=== PATIENT | female | born 1950 | race Caucasian/White ===

== ENCOUNTER 2017-01-16 09:26 | Emergency (ER) | payer MEDICARE ==
[2017-01-16 09:47] VITALS: BP 135/84; PULSE 86; RESP 18; TEMP 98.8; O2SAT 96; BMI 27.4
[2017-01-16] MEDS ORDERED: Morphine 2 mg/ml ISec IM STA (09:50)
--- NOTE | 2017-01-16 09:50 | ED PDOC ---
Arrival/HPI - General Time Seen by Provider: 01/16/17 09:46 Historian: Patient - History of Present Illness Narrative History of Present Illness (Text): 01/16/17 09:47 66 y/o female, no pmh, nkda, c/o rt. upper arm pain x 2 days. Pt. stated that she was running to catch the bus yesterday, fall with the rt. shoulder extension , been having pain since, didn't come to the hospital until today, no head or neck injury, no LOC, no dizziness, no chest pain or shortness of breath, no night sweat, no head/neck/back pain, no other medical or psychological complaints. Past Medical History - Provider Review Nursing Documentation Reviewed: Yes Family/Social History - Physician Review Nursing Documentation Reviewed: Yes Family/Social History: Unknown Family HX Allergies/Home Meds Allergies/Adverse Reactions: Allergies No Known Allergies Allergy (Verified 01/16/17 09:49) Review of Systems - Review of Systems Constitutional: absent: Fatigue, Fevers Eyes: absent: Vision Changes ENT: absent: Hearing Changes Respiratory: absent: SOB, Cough Cardiovascular: absent: Chest Pain Gastrointestinal: absent: Abdominal Pain, Nausea, Vomiting Musculoskeletal: Arthralgias, Myalgias. absent: Back Pain, Neck Pain, Joint Swelling Skin: absent: Rash, Pruritis, Skin Lesions, Laceration Neurological: absent: Headache, Dizziness, Focal Weakness Physical Exam Vital Signs Reviewed: Yes Vital Signs Temp Pulse Resp BP Pulse Ox 01/16/17 09:39 98.8 F 86 18 135/84 96 Temperature: Afebrile Blood Pressure: Normal Pulse: Regular Respiratory Rate: Normal Appearance: Positive for: Well-Appearing, Non-Toxic Pain Distress: Moderate Mental Status: Positive for: Alert and Oriented X 3 - Systems Exam Head: Present: Atraumatic, Normocephalic Pupils: Present: PERRL Extroacular Muscles: Present: EOMI Conjunctiva: Present: Normal Mouth: Present: Moist Mucous Membranes Neck: Present: Normal Range of Motion Respiratory/Chest: Present: Clear to Auscultation, Good Air Exchange. No: Respiratory Distress, Accessory Muscle Use Cardiovascular: Present: Regular Rate and Rhythm, Normal S1, S2. No: Murmurs Abdomen: Present: Normal Bowel Sounds. No: Tenderness, Distention, Peritoneal Signs Back: Present: Normal Inspection Upper Extremity: Present: Normal Inspection, Other (RUE: +ttp on the proximal humeral and humeral head region with visible mild ecchymosis noted, skin intact , no laceration or abrasion, no scaphoid/wrist/shoulder/finger/hand enderness, no deformity, sensation intact, motor 5/5, +radial pulse, capillary refill< 2 seconds, neurovascular intact. ). No: Cyanosis, Edema Lower Extremity: Present: Normal Inspection. No: Edema Neurological: Present: GCS=15, CN II-XII Intact, Speech Normal Skin: Present: Warm, Dry, Normal Color. No: Rashes Psychiatric: Present: Alert, Oriented x 3, Normal Insight, Normal Concentration Medical Decision Making ED Course and Treatment: 01/16/17 09:53 -rt. shoulder/humerus xray -sling -morphine IM ordered for pain 01/16/17 11:14 -Rt. shoulder/humerus: There is a transverse nondisplaced fracture through the neck of the humerus. JOINTS: Normal. Glenohumeral and acromioclavicular joints preserved. No osteoarthritis. -Sling applied with neurovascular intact, pt. has no focal neurological deficits on the RUE with full sensation intact to sharp and dull with motor 5/ 5. -Discharge home with naproxen, sling, ice compression, follow up with your own pmd and orthopedic within 2 days, return to the ER for any new or worsening signs or symptoms. - RAD Interpretation Radiology Orders: 01/16/17 09:50 HUMERUS RIGHT [RAD] Stat SHOULDER RIGHT [RAD] Stat Rt. shoulder/humerus: There is a transverse nondisplaced fracture through the neck of the humerus. JOINTS: Normal. Glenohumeral and acromioclavicular joints preserved. No osteoarthritis. Microbiology Manager: Radiologist - Medication Orders Current Medication Orders: Discontinued Medications Morphine Sulfate (Morphine) 2 mg IM STAT STA Stop: 01/16/17 09:51 Last Admin: 01/16/17 10:35 Dose: 2 mg - PA / [employer] / Resident Statement /DO has reviewed & agrees with the documentation as recorded. Disposition/Present on Arrival - Present on Arrival Any Indicators Present on Arrival: No History of DVT/PE: No History of Uncontrolled Diabetes: No Urinary Catheter: No History of Decub. Ulcer: No - Disposition Have Diagnosis and Disposition been Completed?: Yes Diagnosis: Accidental fall, Shoulder pain, Proximal humerus fracture Disposition: HOME/ ROUTINE Disposition Time: 09:54 Patient Plan: Discharge Patient Problems: Current Active Problems Problem Status Onset Accidental fall Acute Shoulder pain Acute Condition: IMPROVED Additional Instructions: -Discharge home with naproxen, sling, ice compression, follow up with your own pmd and orthopedic within 2 days, return to the ER for any new or worsening signs or symptoms. Prescriptions: Naproxen 500 mg PO BID PRN #20 tab PRN Reason: Other Referrals: Juan J Gatica [Primary Care Provider] - Follow up with primary Seun Pfeiffer MD [Staff Provider] - Follow up with primary Forms: WORK NOTE
--- NOTE | 2017-01-16 10:50 | RAD ---
PROCEDURE: Radiographs of the right humerus. HISTORY: fall and pain COMPARISON: None. FINDINGS: BONES: There is a transverse nondisplaced fracture through the neck of the humerus SOFT TISSUES: Normal. OTHER FINDINGS: None. IMPRESSION: There is a transverse nondisplaced fracture through the neck of the humerus
--- NOTE | 2017-01-16 10:52 | RAD ---
PROCEDURE: Radiographs of the Right Shoulder HISTORY: fall and pain COMPARISON: No prior. FINDINGS: BONES: There is a transverse nondisplaced fracture through the neck of the humerus JOINTS: Normal. Glenohumeral and acromioclavicular joints preserved. No osteoarthritis. SOFT TISSUES: Normal. OTHER FINDINGS: None. IMPRESSION: There is a transverse nondisplaced fracture through the neck of the humerus
== END 2017-01-16 11:33 | disposition home or self-care (01) ==
LOC: ED 09:26
DX: S42.294A Other nondisplaced fracture of upper end of right humerus, initial encounter for closed fracture (principal); W01.0XXA Fall on same level from slipping, tripping and stumbling without subsequent striking against object, initial encounter; Y93.02 Activity, running; Y92.89 Other specified places as the place of occurrence of the external cause
CPT/HCPCS: 73030; 73060; 96372; 99283; J2270